=== PATIENT | male | born 1945 | race Caucasian/White ===

== ENCOUNTER 2022-08-11 07:17 | Day surgery (SDC) | payer MEDICARE, BC ==
[2022-08-11] MEDS ORDERED: fentaNYL 100 MCG/2 ML SDV IV ONE (07:18)
[2022-08-11] MEDS ORDERED: Midazolam 1 MG/ML 2 ML SDV IV ONE (07:18)
[2022-08-11] MEDS ORDERED: Lactated Ringers 1,000 ML IV SCH (07:30)
[2022-08-11] MEDS ORDERED: Sodium Chloride 0.9% 10 ML Syringe FLUSH PRN (07:30)
[2022-08-11] MEDS ORDERED: acetaZOLAMIDE 500 MG Cap.ER PO ONE (09:30)
[2022-08-11 10:44] VITALS: BP 125/72; PULSE 74
== END 2022-08-11 09:36 | disposition home or self-care (01) ==
LOC: FB.SDS 07:17
PROVIDERS: ATTEND Ophthalmology
DX: H25.813 Combined forms of age-related cataract, bilateral (principal); H35.3131 Nonexudative age-related macular degeneration, bilateral, early dry stage; H47.391 Other disorders of optic disc, right eye; H02.831 Dermatochalasis of right upper eyelid; H02.834 Dermatochalasis of left upper eyelid; I10 Essential (primary) hypertension; R31.0 Gross hematuria; J45.909 Unspecified asthma, uncomplicated; J43.9 Emphysema, unspecified; F17.210 Nicotine dependence, cigarettes, uncomplicated; Z79.899 Other long term (current) drug therapy; Z88.0 Allergy status to penicillin; Z90.49 Acquired absence of other specified parts of digestive tract; Z98.890 Other specified postprocedural states
CPT/HCPCS: 00142; 66984; A9270; J2250; J3010; J3490; V2632

== ENCOUNTER 2022-09-01 07:36 | Day surgery (SDC) | payer MEDICARE, BC ==
[2022-09-01] MEDS ORDERED: fentaNYL 100 MCG/2 ML SDV IV ONE (07:37)
[2022-09-01] MEDS ORDERED: Midazolam 1 MG/ML 2 ML SDV IV ONE (07:37)
[2022-09-01] MEDS ORDERED: Sodium Chloride 0.9% 10 ML Syringe FLUSH PRN (08:00)
[2022-09-01] MEDS ORDERED: Lactated Ringers 1,000 ML IV PRN (08:00)
[2022-09-01] MEDS ORDERED: acetaZOLAMIDE 500 MG Cap.ER PO ONE (08:30)
[2022-09-01 14:54] VITALS: BP 127/88; PULSE 86
== END 2022-09-01 10:15 | disposition home or self-care (01) ==
LOC: FB.SDS 07:36
PROVIDERS: ATTEND Ophthalmology
DX: H25.813 Combined forms of age-related cataract, bilateral (principal); H35.3131 Nonexudative age-related macular degeneration, bilateral, early dry stage; H47.391 Other disorders of optic disc, right eye; H02.831 Dermatochalasis of right upper eyelid; H02.834 Dermatochalasis of left upper eyelid; I10 Essential (primary) hypertension; J45.909 Unspecified asthma, uncomplicated; Z79.899 Other long term (current) drug therapy; Z90.49 Acquired absence of other specified parts of digestive tract; Z98.890 Other specified postprocedural states; Z87.891 Personal history of nicotine dependence; Z88.0 Allergy status to penicillin
CPT/HCPCS: 00142-QZ; A9270-GY; J2250; J3010; J3490; V2632